=== PATIENT | female | born 1965 | race Caucasian/White ===

== ENCOUNTER 2020-07-09 20:22 | Emergency (ER) | payer OTHER, SELFPAY ==
--- NOTE | ~2020-07-09 | XR_ITS ---
EXAMINATION: XR KNEE, LEFT CLINICAL INFORMATION: Knee pain and swelling status post fall COMPARISON: None TECHNIQUE: Four views of the left knee. FINDINGS: Degenerative changes are present in the with some mild osteophyte formation in all 3 compartments. No significant joint space narrowing is seen. No knee effusion or fracture is seen. XR/XR knee LT 4V IMPRESSION: Mild tricompartmental degenerative changes. No evidence of an acute traumatic injury.
[2020-07-09 20:32] VITALS: BP 170/76; PULSE 63; RESP 18; TEMP 36.5; O2SAT 100; BMI 47.8
--- NOTE | 2020-07-09 22:12 | ED_ITS ---
HPI - Extremity Injury (Lower) General Chief Complaint: Extremity Injury, Lower Stated Complaint: FALL Time Seen by Provider: 07/09/20 22:10 History of Present Illness HPI Narrative: 54-year-old female status post accidental fall. Patient twisted her left knee. Complaining of pain localized to that area. Unable to bear weight. Patient from home not on any blood thinners. No fever no chills no cough no congestion or upper respiratory symptoms no systemic complaints. Related Data Previous Rx's Medication Instructions Recorded ibuprofen 400 mg PO Q6H PRN #20 tab 07/09/20 Allergies Allergy/AdvReac Type Severity Reaction Status Date / Time erythromycin base AdvReac Chest Pain Verified 07/09/20 20:35 Review of Systems Review of Systems: Constitutional: No Weight loss, No Fever, No Chills, No Night Sweats, No Fatigue, No Malaise ENT/Mouth: No Hearing loss, No Ear Pain, No Nasal Congestion, No Sinus Pain, No Hoarseness, No sore throat, No Rhinorrhea, No Swallowing Difficulty Eyes: No Eye Pain, No Swelling, No Redness, No Foreign Body, No Discharge, No Vision Changes Cardiovascular: No Chest Pain, No SOB, No Dyspnea on Exertion, No Orthopnea, No Edema, No Palpitations Respiratory: No Cough, No Sputum, No Wheezing, No Smoke Exposure, No Dyspnea Gastrointestinal: No Nausea, No Vomiting, No Diarrhea, No Constipation, No abdominal Pain, No Hematochezia, No Melena Genitourinary: no irregular bleeding, No Dysuria, No Urinary Frequency, No Hematuria, No Urinary Incontinence, No Urgency, No Flank Pain, No Urinary Flow Changes, No Hesitancy Musculoskeletal: Positive swelling to left knee, pain on ambulation Neuro: No Weakness, No Numbness, No Paresthesias, No Loss of Consciousness, No Dizziness, No Headache Psych: No Anxiety/Panic, No Depression, No SI/HI/AH/VH, No Social Issues, Heme/Lymph: No Bruising, No Bleeding,No Lymphadenopathy Endocrine: No Polyuria, No Polydipsia, No Temperature Intolerance [facility] Past Medical History Attestation statement: The following information was validated with the patient. Medical History Diabetes HLD (hyperlipidemia) HTN (hypertension) Myocardial infarct Surgical History H/O: hysterectomy Social History Social History Advance Directives: No Advance Directives Information Provided: Yes Physical Exam Vital Signs: Vital Signs: Last Vital Signs Temp 97.7 F 07/09/20 20:32 Pulse 63 07/09/20 20:32 Resp 18 07/09/20 20:32 BP 170/76 H 07/09/20 20:32 Pulse Ox 100 07/09/20 20:32 Body Mass Index 47.8 Appearance: Alert. Oriented X3. No acute distress. Eyes: Pupils equal, round and reactive to light. ENT: Pharynx normal. Neck: Normal inspection. Neck supple. No lymph nodes noted. No crepitus CVS: Normal heart rate and rhythm. Pulses normal. Normal S1 and S2 Respiratory: No respiratory distress. Breath sounds normal. No Wheezing. No rales Abdomen: Soft and nontender. No rigidity. No distention. good BS x4 Skin: Skin warm and dry. Normal skin color. Normal skin turgor. Extremities: Positive swelling to the left knee. There is positive effusion noted. There is pain on palpation of the patella. Limited range of motion secondary to pain. There is no pain on palpation of the hip. No pain on palpation of the hip. Skin in the lower extremities intact. Pulse 2 +at dorsalis pedis. Sensation grossly intact over the foot. Neuro: Oriented X 3. No motor deficit. No sensory deficit. Moving all extermities. No slurred speech MDM - Extremity Injury (Lower) MDM Narrative Medical decision making narrative: X-ray showed no gross evidence of fracture. Cannot rule out the possibility of internal derangement of the knee. Cannot rule out meniscal or ligamentous injury. Will start patient on Motrin. Will have patient follow-up with orthopedic on an outpatient basis. In stable condition. Discharge Plan Discharge Clinical Impression: Acute internal derangement of knee Patient Disposition: Home, Self-Care Instructions: Knee Sprain (ED), Swollen Knee Joint (ED), Meniscus Tear (ED) Additional Instructions: Ice, nonweightbearing, use Serg bandage as needed. Follow-up with orthopedics on an outpatient basis. Prescriptions: New ibuprofen 400 mg tablet 400 mg PO Q6H PRN (Reason: pain) Qty: 20 RF: 0 Referrals: Gamaliel Sarmiento MD [Physician] - 2 days
[2020-07-09] MEDS: Ibuprofen 400 MG TABLET PO (22:20)
== END 2020-07-09 22:31 | disposition home or self-care (01) ==
PROVIDERS: Emergency Provider Emergency Medicine Emergency Medical Services; PCP Internal Medicine
DX: M23.92 Unspecified internal derangement of left knee (principal); I10 Essential (primary) hypertension; Z79.899 Other long term (current) drug therapy
CPT/HCPCS: 73564; 99283